=== PATIENT | female | born 1945 ===

== ENCOUNTER 2017-12-06 09:18 | Emergency (ER) | payer MEDICARE ==
[2017-12-06] MEDS ORDERED: Labetalol IV* 5 MG/ML 20 ML VIAL IV PUSH ONE (10:30)
[2017-12-06] MEDS ORDERED: hydrALAZINE IV* 20 MG/ML VIAL IV SLOW PU ONE ×2 (10:32→12:08)
[2017-12-06 11:02] LABS: ABS Basophils 0 10^3/ul (0-0.2); ABS Eosinophils 0 10^3/ul (0-0.6); ABS Lymphocytes 1.4 10^3/ul (1.0-4.8); ABS Monocytes 0.5 10^3/ul (0-0.8); ABS Neutrophils 3.5 10^3/ul (1.5-7.7); ABS Nucleated RBC 0 10^3/ul; Eosinophil % 0.4 % (0-6); Hematocrit 41 % (35-47); Hemoglobin 14.3 g/dl (12.0-16.0); Lymphocyte % 25.5 % (25-47); Mean Corpuscular HGB Conc 35 g/dl (31-36); Mean Corpuscular Hemoglobin 33 pg (27-31); Mean Corpuscular Volume 95 fL (80-97); Mean Platelet Volume 8.6 um3 (7.4-10.4); Nucleated Red Blood Cells % 0; Platelet Count 190 10^3/ul (150-450); Red Blood Count 4.32 10^6/ul (4.0-5.4); Red Cell Distribution Width 12 % (10.5-15); White Blood Count 5.4 10^3/ul (3.5-10.8)
[2017-12-06 11:05] LABS: Urine Appearance Clear; Urine Blood Negative (Negative); Urine Color Straw; Urine Ketones Negative (Negative); Urine Protein Negative (Negative); Urine Specific Gravity 1.004 (1.010-1.030); Urine Urobilinogen Negative (Negative)
[2017-12-06 11:25] LABS: EGFR Non-African American 82.3 (>60)
--- NOTE | 2017-12-06 13:31 | ED ---
Marychuy Ramirez Julia, scribed for Popeye Solorzano MD on 12/06/17 at 1023 . Hypertension - HPI Summary HPI Summary: This is a 72 year old F BIBA to [facility] with a chief complaint of hypertension, measured at home, with frontal headache since last night. Additionally c/o occipital headache. She denies CP, SOB, blurry vision, and neck pain. Pain is 4/ 10 in severity. PMHx of hypertension. Patient states she takes her medication regularly and hypertension is typically well controlled. - History of Current Complaint Chief Complaint: EDHypertension Stated Complaint: HIGH BLOOD PRESSURE Time Seen by Provider: 12/06/17 10:12 Hx Obtained From: Patient Onset/Duration: Started Hours Ago Timing: Constant Aggravating Factor(s): Nothing Alleviating Factor(s): Nothing Associated Signs & Symptoms: Headaches - Allergies/Home Medications Allergies/Adverse Reactions: Allergies Allergy/AdvReac Type Severity Reaction Status Date / Time erythromycin base Allergy See Comment Verified 12/06/17 09:43 indomethacin Allergy See Comment Verified 12/06/17 09:43 Home Medications: Home Medications Atenolol TAB* [Tenormin TAB* 50 MG] 50 mg PO BID 12/06/17 [History Confirmed ] Atorvastatin* [Lipitor*] 40 mg PO DAILY 12/06/17 [History Confirmed 12/06/17] PMH/Surg Hx/FS Hx/Imm Hx Cardiovascular History: Reports: Hx Hypertension Comment Only: Hx Coronary Artery Disease - CHOLESTEROL CONTROL WITH MEDICATION GI History: Comment Only: Other GI Disorders - COLITIS AND DIVERTICULITIS Musculoskeletal History: Reports: Hx Arthritis - RIGHT HIP, LOWER BACK, FINGERS RIGHT HAND Sensory History: Reports: Hx Contacts or Glasses - GLASSES Denies: Hx Hearing Aid Opthamlomology History: Reports: Hx Contacts or Glasses - GLASSES - Surgical History Surgery Procedure, Year, and Place: 1976 HYSTERECTOMY,DO. 1997 RIGHT HEEL SURGERY, DO. 2002 LEFT WRIST SURGERY, [facility] [place] Hx Anesthesia Reactions: No Infectious Disease History: No Infectious Disease History: Denies: Traveled Outside the [place] in Last 30 Days - Family History Known Family History: Positive: Hypertension - Social History Alcohol Use: None Substance Use Type: Reports: None Smoking Status (MU): Never Smoked Tobacco Review of Systems Negative: Blurred Vision Positive: Other - hypertension. Negative: Chest Pain Negative: Shortness Of Breath Negative: Myalgia - neck pain Positive: Headache All Other Systems Reviewed And Are Negative: Yes Physical Exam - Summary Physical Exam Summary: VITAL SIGNS: Reviewed. GENERAL: Patient is a well-developed and nourished female who is lying comfortable in the stretcher. Patient is not in any acute respiratory distress. HEAD AND FACE: No signs of trauma. No ecchymosis, hematomas or skull depressions. No sinus tenderness. EYES: PERRLA, EOMI x 2, No injected conjunctiva, no nystagmus. EARS: Hearing grossly intact. Ear canals and tympanic membranes are within normal limits. MOUTH: Oropharynx within normal limits. NECK: Supple, trachea is midline, no adenopathy, no JVD, no carotid bruit, no c- spine tenderness, neck with full ROM. CHEST: Symmetric, no tenderness at palpation LUNGS: Clear to auscultation bilaterally. No wheezing or crackles. CVS: Regular rate and rhythm, S1 and S2 present, no murmurs or gallops appreciated. ABDOMEN: Soft, non-tender. No signs of distention. No rebound no guarding, and no masses palpated. Bowel sounds are normal. EXTREMITIES: FROM in all major joints, no edema, no cyanosis or clubbing. NEURO: Alert and oriented x 3. No acute neurological deficits. Speech is normal and follows commands. SKIN: Dry and warm Triage Information Reviewed: Yes Vital Signs On Initial Exam: Initial Vitals Temp Pulse Resp BP Pulse Ox 97.9 F 60 20 235/99 95 12/06/17 09:24 12/06/17 09:24 12/06/17 09:24 12/06/17 09:24 12/06/17 09:24 Vital Signs Reviewed: Yes Diagnostics - Vital Signs Vital Signs Temp Pulse Resp BP Pulse Ox 12/06/17 09:24 97.9 F 60 20 235/99 95 - Laboratory Lab Results: Lab Results 12/06/17 12/06/17 12/06/17 Range/Units 10:49 10:49 10:51 WBC 5.4 (3.5-10.8) 10^3/ul RBC 4.32 (4.0-5.4) 10^6/ul Hgb 14.3 (12.0-16.0) g/dl Hct 41 (35-47) % MCV 95 (80-97) fL MCH 33 H (27-31) pg MCHC 35 (31-36) g/dl RDW 12 (10.5-15) % Plt Count 190 (150-450) 10^3/ul MPV 8.6 (7.4-10.4) um3 Neut % (Auto) 64.5 (38-83) % Lymph % (Auto) 25.5 (25-47) % [place] % (Auto) 8.7 H (0-7) % Eos % (Auto) 0.4 (0-6) % Baso % (Auto) 0.9 (0-2) % Absolute Neuts (auto) 3.5 (1.5-7.7) 10^3/ul Absolute Lymphs (auto) 1.4 (1.0-4.8) 10^3/ul Absolute Monos (auto) 0.5 (0-0.8) 10^3/ul Absolute Eos (auto) 0 (0-0.6) 10^3/ul Absolute Basos (auto) 0 (0-0.2) 10^3/ul Absolute Nucleated RBC 0 10^3/ul Nucleated RBC % 0 Sodium 139 (139-145) mmol/L Potassium 4.1 (3.5-5.0) mmol/L Chloride 104 (101-111) mmol/L Carbon Dioxide 27 (22-32) mmol/L Anion Gap 8 (2-11) mmol/L BUN 12 (6-24) mg/dL Creatinine 0.70 (0.51-0.95) mg/dL Est GFR ( Amer) 105.8 (>60) Est GFR (Non-Af Amer) 82.3 (>60) BUN/Creatinine Ratio 17.1 (8-20) Glucose 113 H (70-100) mg/dL Calcium 9.5 (8.6-10.3) mg/dL Total Bilirubin 0.60 (0.2-1.0) mg/dL AST 19 (13-39) U/L ALT 10 (7-52) U/L Alkaline Phosphatase 48 (34-104) U/L Total Creatine Kinase 103 (10-223) U/L Troponin I 0.00 (<0.04) ng/mL Total Protein 7.1 (6.4-8.9) g/dL Albumin 4.2 (3.2-5.2) g/dL Globulin 2.9 (2-4) g/dL Albumin/Globulin Ratio 1.4 (1-3) Urine Color Straw Urine Appearance Clear Urine pH 7.0 (5-9) Ur Specific Central 1.004 L (1.010-1.030) Urine Protein Negative (Negative) Urine Ketones Negative (Negative) Urine Blood Negative (Negative) Urine Nitrate Negative (Negative) Urine Bilirubin Negative (Negative) Urine Urobilinogen Negative (Negative) Ur Leukocyte Esterase Negative (Negative) Urine Glucose Negative (Negative) Result Diagrams: 12/06/17 10:49 12/06/17 10:49 Lab Statement: Any lab studies that have been ordered have been reviewed, and results considered in the medical decision making process. - EKG 1046 Cardiac Rate: Bradycardia EKG Rhythm: Sinus Bradycardia - at 56 BPM EKG Interpretation: no ST elevation, normal axis Hypertension Course/Dx - Course Assessment/Plan: Patient is a 73-year-old female who presents to the emergency department with a chief complaint of having increased blood pressure and slight headache. The patient denies any chest pain shortness of breath or palpitations. Initially the patient was placed in a cafeteria monitor, we obtained an IV access and I gave her Hydralazine for the hypertension. Blood test results without any significant abnormality except for glucose of 113. Urinalysis is negative for UTI. After the patient was given hydralazine for blood pressure is 153/77. The patient continues to be asymptomatic. The patient will be discharged home with follow with primary care physician. I discussed all the findings and test results with the patient. Patient was instructed to return to the emergency room immediately if any of the symptoms return or worsens. Plan of care was discussed with the patient and understands and agrees. All questions were answered at patient satisfaction. There were no further complaints or concerns. Lung exam before discharge: CTA B/L. Good air exchange. No wheezing or crackles heard. CVS: S1 and S2 present. No murmurs appreciated. Patient is alert and oriented x 3. Patient is hemodynamically stable. Patient will be discharged home with follow up PCP in the next 2-3 days - Diagnoses Differential Diagnosis/HQI PQRI: Hypertension, Hypertensive Crisis, Hypertensive Urgency Provider Diagnoses: Uncontrolled hypertension Discharge - Sign-Out/Discharge Documenting (check all that apply): Discharge/Admit/Transfer - Discharge Plan Condition: Stable Disposition: HOME Patient Education Materials: Chronic Hypertension (ED) Referrals: Session Bolivar BORJA [Primary Care Provider] - 1 Week Additional Instructions: FOLLOW UP WITH YOUR PRIMARY CARE PROVIDER WITHIN ONE WEEK FOR HIGH BLOOD PRESSURE NOTED TODAY. RETURN TO THE ED FOR ANY WORSENING OR NEW SYMPTOMS. - Billing Disposition and Condition Condition: STABLE Disposition: HOME The documentation as recorded by the Marychuy rodriguez Julia accurately reflects the service I personally performed and the decisions made by Rashad miguel Walter, MD.
[2017-12-06 13:40] VITALS: BP 146/72
== END 2017-12-06 13:51 | disposition home or self-care (01) ==
LOC: ED 09:18
DX: I10 Essential (primary) hypertension (principal); Z88.3 Allergy status to other anti-infective agents; Z88.8 Allergy status to other drugs, medicaments and biological substances
CPT/HCPCS: 36415; 80053; 81003; 82550; 84484; 85025; 93005; 96374; 96376; 99283; J0360

== ENCOUNTER 2019-08-21 07:09 | Day surgery (SDC) | payer MEDICARE ==
[~2019-08-21 07:09] MED LIST: Buffered Lidocaine 1% SYRIN* 1 ML/SYRINGE INTRADERM ONE; Famotidine IV* 10 MG/ML 2 ML (20 mg) IV ONE; Lactated Ringers 1000 ML Bag* 1,000 ML IV SCH
[2019-08-21] MEDS ORDERED: Dexamethasone IV* 4 MG/ML 5 ML VIAL (20 MG) ONE (07:31)
[2019-08-21] MEDS ORDERED: Bupivacaine 0.5% SDV PF* 30ML VIAL ONE (07:31)
[2019-08-21] MEDS ORDERED: Lidocaine 1% INJ* 10 MG/ML 30 ML SDV ONE (07:31)
[2019-08-21] MEDS ORDERED: Famotidine IV* 10 MG/ML 2 ML (20 mg) ONE (07:50)
[2019-08-21] MEDS ORDERED: ceFAZolin 2 GM PREMIX in ORs 2 GM/50 ML BAG ONE (07:50)
[2019-08-21] MEDS ORDERED: Acetaminophen TAB* 325 MG PO PRN (08:54)
[2019-08-21] MEDS ORDERED: Naloxone* 0.4 MG/ML 1 ML VIAL IV PRN (08:54)
[2019-08-21] MEDS ORDERED: DiMENhydriNATE IV* 50 MG/ML VIAL IV PUSH PRN (08:54)
[2019-08-21] MEDS ORDERED: oxyCODONE TAB* 5 MG TAB PO PRN (08:54)
[2019-08-21] MEDS ORDERED: Midazolam* 1 MG/ML 5 ML VIAL (5 MG) ONE (08:58)
[2019-08-21] MEDS ORDERED: Chloroprocaine 2%* 20 ML VIAL ONE (09:06)
[2019-08-21] MEDS ORDERED: Propofol* 10 MG/ML 20 ML BTL ONE (10:43)
[2019-08-21] MEDS ORDERED: Ondansetron INJ* 2 MG/ML VIAL ONE (10:43)
[2019-08-21] MEDS ORDERED: EPHEDrine (Pressors)* 50 MG/ML VIAL ONE (10:43)
[2019-08-21] MEDS ORDERED: Dexamethasone IV* 4 MG/ML 1 ML (4 MG) ONE (10:43)
[2019-08-21] MEDS ORDERED: Ketorolac INJ* 30 MG/ML 1 ML VIAL ONE (10:43)
[2019-08-21] MEDS ORDERED: DiMENhydriNATE IV* 50 MG/ML VIAL ONE (10:43)
[2019-08-21] MEDS ORDERED: Lidocaine 2% PF * 5 ML VIAL ONE (10:43)
[2019-08-21 12:30] VITALS: BP 140/76
--- NOTE | 2019-08-21 20:32 | OP ---
DATE OF OPERATION: 08/21/19 - [facility] DATE OF : 45 SURGEON: Jacob Alonzo DPM. [employer] CONS[employer]ANT: None. PRE-OP DIAGNOSES: 1. Posterior calcaneal spur. 2. Retrocalcaneal bursitis, left heel. 3. Chronic Achilles tendinosis in the left. POST-OP DIAGNOSES: 1. Posterior calcaneal spur. 2. Retrocalcaneal bursitis, left heel. 3. Chronic Achilles tendinosis in the left. OPERATIVE PROCEDURE: 1. Excision of bursa from left foot. 2. Excision of the posterior superior calcaneal body of the left heel. 3. Repair of Achilles tendon on the left. 4. The application of fiberglass [id number] splint on the left. PATHOLOGY: Resected bursa and calcaneal spur. HEMOSTASIS: Thigh tourniquet at 250 mmHg on the left. ESTIMATED BLOOD LOSS: Less than 20 cc. INDICATIONS: The patient with chronic posterior left heel pain with calcaneal hypertrophy Achilles tendinosis, pain and stiffness while walking wearing shoes for years. She has tried numerous treatments with only limited and temporary relief and she opts for surgery at this time to attempt to decrease her pain and improve her ability to wear shoes and walk with less pain. DESCRIPTION OF PROCEDURE: The patient received spinal anesthesia and was placed in the prone position on the operating room table and secured. This was administered by the anesthesia department. The left lower extremity was prepped and draped up to the knee in typical sterile fashion. Left foot was then exsanguinated with an Esmarch bandage and pneumatic thigh tourniquet was inflated to 250 mmHg about a well-padded left thigh. Attention was directed to the posterolateral aspect of the left heel, where a curvilinear incision was made lateral to the Achilles tendon. The incision was deepened through subcutaneous tissues with care being taken to retract neurovascular structures and cauterize superficial bleeders as needed. Deep fascia was incised entering into the retrocalcaneal space. There immediately was noted to be pink inflammatory tissue consistent with the large bursa. This was excised and sent off the field as specimen. The fascia was incised to allow for adequate exposure of the posterosuperior aspect of the calcaneal body, which was noted to be significantly hypertrophied. Using a sagittal saw and a rongeur, this was resected until adequately reduced. Using a power bur and hand rasp, the rough edges were made smooth. The area was flushed with copious amounts of normal sterile saline. Next, portions of the Achilles tendon were reinforced with 2-0 Vicryl where needed and then the deep fascia was reapproximated and secured with 2- 0 Vicryl. The surgical site was flushed again with copious amounts of normal sterile saline. The subcutaneous tissues were reapproximated with 4-0 Vicryl and the skin was closed with 5-0 nylon. A local anesthetic block was performed with 1:1 mixture of 1% lidocaine plain, 0.5% Marcaine plain. Incision was then dressed with Xeroform gauze and a padded sterile dressing was applied with 4x4 gauze, Pete, and Webril and secured with Coban wrap for some mild compression. Next, a well-padded [id number] fiberglass splint was applied and secured with Aly wraps. This was done with the ankle slightly plantarflexed. The patient was then gently placed in the supine position back on the cart and the thigh tourniquet had been deflated previously and prompt hyperemic response noted to all 5 digits of the patient's left left foot. Having appeared to have tolerated the procedure and anesthesia well, the patient was transported via cart from the operating room to Recovery in satisfactory condition with capillary refill less than 3 seconds to all digits of the left foot. [id number]/CPS #: [id number] MTDD
== END 2019-08-21 12:28 | disposition home or self-care (01) ==
LOC: OREAST 07:09
PROVIDERS: ATTEND Podiatrist Foot Surgery
DX: M77.32 Calcaneal spur, left foot (principal); M76.62 Achilles tendinitis, left leg; I10 Essential (primary) hypertension; E78.00 Pure hypercholesterolemia, unspecified; M19.90 Unspecified osteoarthritis, unspecified site
CPT/HCPCS: 88304; 88311; J0690; J1100; J1240; J1885; J2250; J2400; J2405; J2704; J3490